=== PATIENT | male | born 1980 | race African-American/Black ===

== ENCOUNTER 2024-12-03 16:32 | Emergency (ER) | payer SELFPAY | END 2024-12-03 17:00 | disposition home or self-care (01) | LOC: FB.ED 16:32 | DX: S03.00XA Dislocation of jaw, unspecified side, initial encounter (principal); Z88.5 Allergy status to narcotic agent; Z88.8 Allergy status to other drugs, medicaments and biological substances; W22.8XXA Striking against or struck by other objects, initial encounter; Y93.89 Activity, other specified; Y99.0 Civilian activity done for income or pay | CPT/HCPCS: 99283 ==